=== PATIENT | male | born 1955 | race Caucasian/White ===

== ENCOUNTER 2020-07-08 16:28 | Inpatient (IN) ==
[2020-07-08] MEDS ORDERED: HYDROmorphone 1 MG/ML SYRINGE IM ONE (16:43)
[2020-07-08] MEDS ORDERED: ONDANSETRON 4 MG ODT TABLET SL ONE (16:44)
[2020-07-08] MEDS ORDERED: KETOROLAC 15 MG/ML VIAL IV ONE (17:30)
[2020-07-08] MEDS ORDERED: HYDROmorphone 0.5 MG/0.5 ML SYRINGE IV ONE (17:30)
--- NOTE | 2020-07-08 17:43 | Emergency Department Note ---
Lower Extremity Injury HPI General Chief Complaint: Extremity Injury, Lower Stated Complaint: left hip pain Time Seen by Provider: 07/08/20 16:30 Source: patient Mode of arrival: ambulatory History of Present Illness HPI Narrative: Narrative: 64-year-old male presents emergency department by private vehicle with complaints of left hip pain. He states that he was working in his shop when he tripped and fell directly on his lateral left hip. He had instant pain but would not allow his to call the paramedics and came by private vehicle instead. He denies previous injury to that hip although he does have chronic hip pain due to arthritis and they were waiting for their primary care provider to order plain x-rays. He has not eaten since 8:00 this morning and had some propels around 3:00. He denies hitting his head or losing consciousness. He is not on blood thinners. He denies chest pain or shortness of breath or abdominal pain calf pain. He has sensation intact distally in his lower extremities. Related Data Home Medications Medication Instructions Recorded Confirmed hydrochlorothiazide 12.5 mg tablet 12.5 mg PO QDAY 10/06/19 11/05/19 insulin lispro 100 unit/mL 1 sliding scale dose SUB-Q 10/06/19 11/05/19 subcutaneous cartridge USEASDIRECTD lisinopril 5 mg tablet 5 mg PO QDAY 10/06/19 11/05/19 etsqzixc-ekmmtcjh-htzrz acid 400 tab PO 10/06/19 11/05/19 mcg-vit K 20 mcg-lycop 300 mcg tablet pravastatin 20 mg tablet 20 mg PO QDAY 10/06/19 11/05/19 pregabalin 75 mg capsule 150 mg PO BID cap 10/06/19 11/05/19 tamsulosin 0.4 mg capsule 0.4 mg PO QDAY 10/06/19 11/05/19 lorazepam 1 mg PO QDAY PRN 07/08/20 07/08/20 Allergies Allergy/AdvReac Type Severity Reaction Status Date / Time Penicillins [PENICILLINS] Allergy Severe Unknown Verified 11/05/19 14:39 Review of Systems ROS ROS Narrative: Narrative: Musculoskeletal: Reports other (Left hip pain) PFSH Narrative Patient History Narrative: Narrative: Medical/Surgical/Family History All Active Problems (Updated 07/08/20 @ 20:04 by Alberto Vogt PA-C) Closed hip fracture (Acute) Sinusitis (Acute) Respiratory distress (Acute) Acute dyspnea (Acute) Sinusitis, acute (Acute) History of bradycardia (Acute) Peripheral neuropathy (Acute) Hyperlipidemia (Acute) Type 1 diabetes mellitus (Acute) Cough (Acute) Medical History Cough Respiratory distress Sinusitis Sinusitis, acute Type 1 diabetes mellitus Social History Smoking Status: Former smoker Exam Narrative Narrative: Narrative: Extremity: Left lower extremity is slightly shorter as well as externally rotated compared to contralateral. He is able to move his toes and has capillary refill less than 2 seconds and dorsalis pedis +2 bilaterally. There is no tenderness of his foot ankle or knee. There is tenderness with internal and external rotation of hip. Head Head: Present atraumatic and normocephalic Neck Neck: Present other (No cervical midline tenderness.) Cardiovascular Cardiovascular: Present regular rate and normal heart sounds Adbominal Abdominal: Present soft and other (Nontender) Neurological Neurological: Present alert and oriented X3 Psychiatric Psychiatric: Present anxious Skin Skin: Present warm (WNL) and cool Course Vital Signs Vital signs: Vital Signs Temperature 97.3 F 07/08/20 16:30 Pulse Rate 70 07/08/20 16:30 Respiratory Rate 18 07/08/20 16:30 Blood Pressure 112/68 07/08/20 16:30 Pulse Oximetry (%) 98 07/08/20 16:30 Temperature 97.3 F 07/08/20 16:30 Pulse Rate 68 07/08/20 19:46 Respiratory Rate 18 07/08/20 16:30 Blood Pressure 117/56 07/08/20 19:46 Pulse Oximetry (%) 97 07/08/20 19:46 MDM MDM Narrative Medical decision making narrative: Narrative: Patient was in extreme pain upon arrival. I am Dilaudid and oral Zofran given for pain and prophylactic nausea. Patient was still in quite a bit of pain and additional IV pain medication as well as methocarbamol and Toradol ordered. Left hip x-rays showed disruption of the cortex of the left proximal femoral neck. CT of the left hip:Comminuted, minimally displaced, angulated subcapital fracture of the left hip. Spoke with Dr. Pepe who had asked that we admit the patient to the hospital since he is a type I diabetic. He will did not do surgery tonight since he is over at [facility]. Dr Rodas agreed to admit the patient for further observation and treatment. Dr. Pepe will consult. ED POC Tests ED POC Tests: BILLY - SARS Antigen Negative EKG Data EKG #1: EKG results narrative: Sinus arrhythmia, first degree AV block. Narrow QRS normal QTC. There is no signs of Brugada, Lopressor weight or HOCM. No ST segment deviations or hyperacute T waves. My interpretation is sinus rhythm with first-degree AV block Discharge Plan Patient/Caregiver Discharge Instructions Pt seen by HEARING SCREENER/PA only: Yes Clinical Impression: Closed hip fracture Patient Disposition: Xfer As Inpt ([facility]) Follow up with: Rozina Watson MD [Primary Care Provider] - Prescriptions: No Action Humalog U-100 Insulin 100 unit/mL cartridge 1 sliding scale dose SUB-Q USEASDIRECTD RF: 0 lisinopril 5 mg tablet 5 mg PO QDAY RF: 0 pregabalin 75 mg capsule 150 mg PO BID RF: 0 tamsulosin 0.4 mg capsule 0.4 mg PO QDAY RF: 0 pravastatin 20 mg tablet 20 mg PO QDAY RF: 0 hydrochlorothiazide 12.5 mg tablet 12.5 mg PO QDAY RF: 0 One-A-Day Men's Multivitamin 400-20-300 mcg tablet 1 tab PO DAILY RF: 0 lorazepam 1 mg Tablet 1 mg PO QDAY PRN (Reason: Anxiety) RF: 0
[2020-07-08] MEDS ORDERED: METHOCARBAMOL 1,000 MG/10 ML VIAL IV ONE (17:44)
--- NOTE | 2020-07-08 18:35 | Cat Scan Report ---
CLINICAL INFORMATION: Trauma. Left hip pain COMPARISON: Plain films 07/08/2020. TECHNIQUE: 0.625mm helical slices were obtained from the mid L4 through the subtrochanteric regions. Following reconstruction, 2.5 mm sagittal, coronal and axial reformations were processed. The exam was reviewed in bone and soft tissue windows. The exam was performed using radiation dose optimization techniques including, but not limited to, automated exposure control, adjustment of mA and/or kV according to patient size and use of iterative reconstruction technique. FINDINGS: Acute oblique comminuted subcapital fracture of the left hip is appreciated. The neck fragment is displaced less than 5 mm anteriorly with respect to femoral head. Fracture apex is angulated approximately 20 degrees anteriorly. No other osseous abnormalities. The SI and hip joints are normal in width and alignment without arthritic change. At L3-4 moderate broad disc protrusion and facet arthropathy result in moderate central canal, bilateral lateral recess and IV foraminal narrowing. There is mild impingement of the descending L4 and exiting L3 nerve roots. At L4-5, moderate broad disc protrusion and facet arthropathy result in severe central canal, severe left lateral recess, moderate right lateral recess and mild bilateral IV foraminal narrowing. There is impingement of descending L5 nerve roots in the lateral recesses. At L5-S1 mild broad disc protrusion results in moderate left and mild right IV foraminal narrowing. There is impingement of the exiting left L5 nerve root. Soft tissues show normal prostate, seminal vesicles, urinary bladder and visualized small/ large bowel. There is no free air or free fluid. Muscle and fascial planes unremarkable. IMPRESSION: 1. Comminuted, minimally displaced, angulated subcapital fracture of the left hip. 2. Multilevel degeneration resulting in central canal, lateral recess and IV foraminal narrowing at L3-4 L4-5 and [id number] see above Interpreted and Authenticated by: Nathan Mancini 07/08/20
--- NOTE | 2020-07-08 18:36 | XRay Report ---
CLINICAL INFORMATION: left hip pain following trauma COMPARISON: None. FINDINGS: The ability displaced slightly angulated subcapital fracture of the left hip appreciated. No other osseous abnormalities. Both SI and hip joints are normal in width and alignment arthritic change. Soft tissues normal. IMPRESSION: Minimally displaced acute subcapital fracture-left hip Interpreted and Authenticated by: Nathan Mancini 07/08/20
--- NOTE | 2020-07-08 18:40 | XRay Report ---
CLINICAL INFORMATION: Preop COMPARISON: 10/22/2019 FINDINGS: Cardiomediastinal silhouette and pulmonary vessels are normal for technique. Lungs are clear. No effusions or evidence of pneumothorax. Malunified old fracture distal left clavicle seen-as before IMPRESSION: No acute cardiopulmonary disease. Interpreted and Authenticated by: Nathan Mancini 07/08/20
--- NOTE | 2020-07-08 20:08 | Internal Med History&Physical ---
HPI History of Present Illness Patient information: Note initiated : 07/08/20 at 7:50 pm Service Date, if different from initiated Date: [] Patient: Robert Reynolds 64 y/o M admitted on for Left Hip Pain. Chief Complaint: [] History of present illness: Mr. Reynolds is a 64 year old male with a history of diabetes mellitus type I complicated by peripheral neuropathy, hyperlipidemia, bradycardia, osteoporosis who fell in his shop and fractured his left hip. Workup in the ED included left hip xrays showing left proximal femoral fracture and CT of the hip showing a comminuted, minimally displaced, angulated subcapital fracture of the left hip. [facility] medicine was asked to admit the patient with orthopedic surgery consulting. The patient denies a history of myocardia infarction or stroke. He is normally fairly active but not athletic. He had a cardiac stress test recently that he says was interpreted as normal. He has had bradycardia for a long time and says he has seen cardiology for that. He manages his diabetes mellitus with an insulin pump and also has a connected sensor. He typically requires about 24 units of insulin per day and hemoglobin A1C have been well controlled since he started using the pump. Prior to that his glucose was difficult to control, at one point hemoglobin A1C was over 12. Other than the hip fracture he is also concerned about left knee pain and swelling. He otherwise has no complaints. Review of systems Constitutional: no fever, fatigue, or weight loss Eyes: no vision changes or pain Cardiovascular: slow heart rate, no chest pain, no palpitations Respiratory: no cough or dyspnea Gastrointestinal: no abdominal pain, no nausea, vomiting, or diarrhea Genitourinary: no dysuria or difficulty voiding Musculoskeletal: left hip and knee pain Integumentary: no skin lesion or wound Neurological: no focal weakness or numbness Psychiatric: no anxiety or depression Head: Atraumatic, normal inspection. Eyes: normal appearance, no scleral icterus. Neck: full ROM Respiratory: no respiratory distress. Cardiovascular: regular bradycardia, S1, S2. GI/Abdominal: soft, nontender, no guarding. Extremities: left leg externally rotated, left knee swelling but no signs of external trauma Neurological: CN II-XII intact, intact motor, intact sensation. Psychiatric: normal mood. Skin: warm, normal color PFSH PFSH All Active Problems (Updated 07/08/20 @ 20:04 by Alberto Vogt PA-C) Closed hip fracture (Acute) Sinusitis (Acute) Respiratory distress (Acute) Acute dyspnea (Acute) Sinusitis, acute (Acute) History of bradycardia (Acute) Peripheral neuropathy (Acute) Hyperlipidemia (Acute) Type 1 diabetes mellitus (Acute) Cough (Acute) Medical History Cough Respiratory distress Sinusitis Sinusitis, acute Type 1 diabetes mellitus MEDS/ALLERGIES Home Medications and Allergies Home Medications Medication Instructions Recorded Confirmed Type hydrochlorothiazide 12.5 mg tablet 12.5 mg PO QDAY 10/06/19 11/05/19 History insulin lispro 100 unit/mL 1 sliding scale dose SUB-Q 10/06/19 11/05/19 History subcutaneous cartridge USEASDIRECTD lisinopril 5 mg tablet 5 mg PO QDAY 10/06/19 11/05/19 History txtvyuzn-kncukyyk-kdzim acid 400 tab PO 10/06/19 11/05/19 History mcg-vit K 20 mcg-lycop 300 mcg tablet pravastatin 20 mg tablet 20 mg PO QDAY 10/06/19 11/05/19 History pregabalin 75 mg capsule 150 mg PO BID cap 10/06/19 11/05/19 History tamsulosin 0.4 mg capsule 0.4 mg PO QDAY 10/06/19 11/05/19 History lorazepam 1 mg PO QDAY PRN 07/08/20 07/08/20 History Allergies Allergy/AdvReac Type Severity Reaction Status Date / Time Penicillins [PENICILLINS] Allergy Severe Unknown Verified 11/05/19 14:39 EXAM Constitutional Vitals: Temp Pulse Resp BP Pulse Ox 97.3 F 68 18 117/56 97 07/08/20 16:30 07/08/20 19:46 07/08/20 16:30 07/08/20 19:46 07/08/20 19:46 A/P Narrative A/P Narrative: Assessment: 64 year old male with a history of diabetes mellitus type I complicated by peripheral neuropathy, hypertension, hyperlipidemia, osteoporosis, bradycardia who fell in his shop and fractured his left hip. The patient's glucose has been well controlled with an insulin pump and sensor. He usually feels low glucose less than 40 but that has been rare with the insulin pump. He does not remember ever having diabetic ketoacidosis. He is active and can tolerate 4 METS. He denies a history of coronary artery disease, no prior stroke or known kidney disease. He says he has a cardiac stress test recently that was reported as normal. He does have a history bradycardia, likely sinus bradycardia. He was recently told he has osteoporosis. #Left hip fracture d/t mechanical fall #Diabetes mellitus type I-on insulin pump #Bradycardia #Hypertension #Osteoporosis-currently not treated Plan -Admission CBC/CMP/type and screen. -EKG for baseline, no other preoperative workup for surgery. -Hold home HCTZ and lisinopril until after surgery as blood pressure is low normal in ED. -Continue insulin pump w/ sensor while on med/surg floor. -POCT glucose to verify sensor accuracy. -Analgesics/bowel regimen. -NPO at midnight. -DVT ppx: SCD for now then pharmacologic when ok with surgery to start. -Code status: Full -Disposition: probably home Time Spent With Patient Time: Total time spent is greater than 50% in coordination of care (as documented) at patient's floor/unit and/or counseling patient: 75 minutes
[2020-07-08] MEDS ORDERED: HYDROmorphone 1 MG/ML SYRINGE IV ONE (21:35)
--- NOTE | 2020-07-08 21:38 | Consultation ---
DATE OF CONSULTATION: 07/08/2020 IDENTIFICATION: This is a 64-year-old male. CHIEF COMPLAINT: Left hip fracture. HISTORY OF PRESENT ILLNESS: Mr. Reynolds sustained ground-level fall at a shop today, had immediate pain, presented to the emergency room at [facility] further evaluation and management. His radiographs have demonstrated a left femoral neck fracture which is displaced. I have been called for further evaluation. PAST MEDICAL HISTORY: Significant for type 1 diabetes, manages this with an insulin pump. His A1c's have been well controlled. Bradycardia, hyperlipidemia, and osteoporosis. PAST SURGICAL HISTORY: Noncontributory. MEDICATIONS: Include, 1. Pravastatin. 2. Gabapentin. 3. ____ Flomax. 4. Lorazepam. 5. Hydrochlorothiazide. 6. Insulin. 7. Lisinopril. ALLERGIES: HIS ALLERGIES ARE TO PENICILLIN. REVIEW OF SYSTEMS: He has been healthy recently with no acute changes in past medical or 10-point review of system. PHYSICAL EXAMINATION: GENERAL: He is awake and alert. He is resting comfortably. HEAD: Normocephalic, atraumatic. EYES: PERRLA. Conjunctivae clear. ENT: Within normal limits. NECK: Supple without pain on range of motion. HEART: Regular. LUNGS: Clear. ABDOMEN: Benign. MUSCULOSKELETAL: His left hip is very carefully positioned. Any movement in and about the hip causes spasming pain. His leg is shortened and now rotated. He is without focal neurovascular deficit. RADIOGRAPHS: Demonstrate a femoral neck fracture which is significantly angulated and displaced. IMPRESSION: Femoral neck fracture. We have reviewed treatment options and I would like to proceed with a total hip arthroplasty. Surgical risks, complications, and limitations have been discussed. Patient understands these well and wishes to proceed. GDD:elbert Job ID: [id number] Doc ID: [id number] Shamar Pepe MD
[2020-07-08] MEDS ORDERED: DEXTROSE 50% 50 ML VIAL IV PRN (22:41)
[2020-07-08] MEDS ORDERED: DEXTROSE 31 GM ORAL.SUSP PO PRN (22:41)
[2020-07-08] MEDS ORDERED: ONDANSETRON 4 MG/2 ML VIAL IV PRN (22:41)
[2020-07-08] MEDS ORDERED: POLYETHYLENE GLYCOL 3350 17 GM PACKET PO PRN (22:41)
[2020-07-08] MEDS ORDERED: 0.9 % SODIUM CHLORIDE 250 ML IV SCH (22:41)
[2020-07-08] MEDS ORDERED: ACETAMINOPHEN 325 MG TABLET PO PRN (22:41)
[2020-07-08] MEDS ORDERED: SENNOSIDES 1 TABLET PO SCH (22:41)
[2020-07-08] MEDS ORDERED: HYDROcodone/APAP 5/325MG TABLET PO PRN (22:41)
[2020-07-08] MEDS ORDERED: ONDANSETRON 4 MG/2 ML VIAL ONE (22:52)
[2020-07-08] MEDS ORDERED: HYDROmorphone 0.5 MG/0.5 ML SYRINGE ONE (22:52)
[2020-07-08] MEDS: 0.9 % SODIUM CHLORIDE 10 ML SYRINGE IV SCH (23:49)
[2020-07-09 00:48] LABS: Hematocrit 40.7 % (41.0-55.0); Hemoglobin 14.1 g/dL (13.5-16.5); Mean Cell Volume 90.4 fL (80.0-100.0); Mean Corpuscular HGB Conc 34.6 g/dL (31.0-36.0); Platelet Count 264 K/mcL (140-440); Red Cell Distribution Width 12.4 % (11.5-14.5); WBC 12.6 K/mcL (4.5-11.0)
[2020-07-09 01:11] LABS: ALT/SGPT 20 U/L (<40); AST/SGOT 21 U/L (<40); Albumin 3.8 gm/dL (3.2-5.2); Albumin/Globulin Ratio 1.5 (1.0-2.3); Alkaline Phosphatase 60 U/L (39-117); Bilirubin,Total 0.8 mg/dL (0.1-1.0); Blood Urea Nitrogen 24 mg/dL (8-23); Calcium 8.9 mg/dL (8.6-10.4); Carbon Dioxide 23 mmol/L (22-30); Chloride 101 mmol/L (96-108); Globulin 2.5 gm/dL (2.2-3.7); Glomerular Filtration Rate 90; Glucose 218 mg/dL (70-105)
[2020-07-09 01:34] LABS: Band Neutrophils % 3 % (0-10); Eosinophils % (Manual) 4 % (0-7); Lymphocytes % 32 % (15-49); Monocytes % (Manual) 11 % (1-12); Platelet Estimate NORMAL (Normal); RBC Morphology NORMAL (Normal); Reactive Lymphocytes 4 % (0-2); Segmented Neutrophils % 46 % (38-78)
[2020-07-09] MEDS ORDERED: HYDROmorphone 0.5 MG/0.5 ML SYRINGE ONE ×2 (02:30→05:55)
[2020-07-09] MEDS: 0.9 % SODIUM CHLORIDE 10 ML SYRINGE IV SCH ×5 (04:53→21:08)
--- NOTE | 2020-07-09 05:38 | XRay Report ---
CLINICAL INFORMATION: knee pain after fall COMPARISON: 06/26/2005 FINDINGS: Absent patella again noted. Minimal calcification seen in the patellar tendon region and edema. No fracture appreciated within the femur, tibia or fibula. Moderate medial tibiofemoral and mild lateral tibiofemoral degeneration has progressed from 2005. Chondrocalcinosis in the medial meniscus is new. Mild diffuse soft tissue swelling noted IMPRESSION: 1. No fracture. 2. Moderate medial and mild lateral tibiofemoral degeneration. Chondrocalcinosis in the medial meniscus. Findings have progressed from 2005. 3. Absent patella. Mild edema in the patellar tendon Interpreted and Authenticated by: Nathan Mancini 07/09/20
[2020-07-09] MEDS ORDERED: HYDROcodone/APAP 5/325MG TABLET PO ONE (06:26)
[2020-07-09] MEDS ORDERED: HYDROmorphone 1 MG/ML SYRINGE IV ONE (07:06)
[2020-07-09] MEDS ORDERED: HYDROmorphone 1 MG/ML SYRINGE ONE (07:19)
[2020-07-09 07:43] LABS: Appearance,Urine HAZY (Clear); Bilirubin,Urine Negative (Negative); Color,Urine YELLOW; Culture Indicated,Urine No; Glucose,Urine (UA) 50 mg/dL (Negative); Ketones,Urine 5 mg/dL (Negative); Leukocyte Esterase,Urine Negative /ug (Negative); Nitrate,Urine Negative (Negative); Protein,Urine Negative (Negative); Specific Gravity,Urine 1.027 (1.000-1.035); Urine Blood Negative (Negative); Urobilinogen,Urine Negative
[2020-07-09] MEDS ORDERED: ceFAZolin 2 GM in DEXTROSE 5% IN WATER 50 ML IV SCH (07:45)
[2020-07-09] MEDS ORDERED: SCOPOLAMINE 1 PATCH PATCH TOPICAL PRN (08:00)
[2020-07-09] MEDS ORDERED: IPRATROPIUM/ALBUTEROL 3 ML AMPUL.NEB NEB PRN ×2 (08:00→09:46)
[2020-07-09] MEDS ORDERED: MAGNESIUM SULFATE 2 GM/50 ML BAG IV ONE (08:01)
[2020-07-09] MEDS ORDERED: TRANEXAMIC ACID 1,000 MG/10 ML VIAL IV ONE ×2 (08:01→09:57)
[2020-07-09] MEDS ORDERED: GLYCOPYRROLATE 0.2 MG/ML VIAL IV ONE (08:01)
[2020-07-09] MEDS ORDERED: MIDAZOLAM 2 MG/2 ML VIAL ONE (08:01)
[2020-07-09] MEDS ORDERED: ROPIVACAINE HCL/PF 30 ML VIAL IJ ONE (08:01)
[2020-07-09] MEDS ORDERED: PHENYLEPHRINE 10 MG/ML VIAL ONE (08:01)
[2020-07-09] MEDS ORDERED: ONDANSETRON 4 MG/2 ML VIAL ONE (08:01)
[2020-07-09] MEDS ORDERED: KETAMINE 50 MG/ML ML ONE (08:01)
[2020-07-09] MEDS ORDERED: DEXAMETHASONE 10 MG/ML VIAL ONE (08:01)
[2020-07-09] MEDS ORDERED: LIDOCAINE HCL/PF 100 MG/5 ML SYRINGE IV ONE (08:01)
[2020-07-09] MEDS ORDERED: PROPOFOL 200 MG/20 ML VIAL IV ONE (08:01)
[2020-07-09] MEDS ORDERED: GENTAMICIN SULFATE 800 MG/20 ML VIAL IR ONE (08:41)
[2020-07-09] MEDS ORDERED: ONDANSETRON 4 MG/2 ML VIAL IV PRN ×2 (09:46→09:57)
[2020-07-09] MEDS ORDERED: METHOCARBAMOL 1,000 MG/10 ML VIAL IV PRN (09:46)
[2020-07-09] MEDS ORDERED: ACETAMINOPHEN 1,000 MG/100 ML BAG IV ONE (09:46)
[2020-07-09] MEDS ORDERED: fentaNYL 100 MCG/2 ML VIAL IV PRN (09:46)
[2020-07-09] MEDS ORDERED: BENZOCAINE/MENTHOL 1 LOZENGE PO PRN ×2 (09:46→09:57)
[2020-07-09] MEDS ORDERED: MAGNESIUM HYDROXIDE 30 ML ORAL.SUSP PO PRN (09:57)
[2020-07-09] MEDS ORDERED: POLYETHYLENE GLYCOL 3350 17 GM PACKET PO PRN (09:57)
[2020-07-09] MEDS ORDERED: FLEETS ADULT ENEMA PR PRN (09:57)
[2020-07-09] MEDS ORDERED: BISACODYL 10 MG SUPP.RECT PR PRN (09:57)
[2020-07-09] MEDS ORDERED: ONDANSETRON 4 MG ODT TABLET SL PRN (09:57)
--- NOTE | 2020-07-09 09:57 | Brief Operative Note ---
Brief Operative Note Date of procedure: 07/09/20 Pre-op diagnosis: left hip fracture Post-op diagnosis: same Procedure: Left total hip arthroplasty Grafts/Implants: Yes Anesthesia: GETA Complications: none Surgeon: Shamar Pepe Prism Measurer: Tanna Tripp Estimated blood loss (cc): 250 Specimens Removed/Pathology: none sent Condition: stable Disposition: PACU
[2020-07-09] MEDS ORDERED: LACTATED RINGERS 1,000 ML IV SCH (10:00)
[2020-07-09] MEDS: MEPERIDINE 25 MG/ML VIAL IV PRN ×2 (10:35→10:50)
[2020-07-09] MEDS: 0.9 % SODIUM CHLORIDE 1,000 ML IV SCH ×2 (11:48→21:29)
--- NOTE | 2020-07-09 14:45 | XRay Report ---
CLINICAL INFORMATION: post op. Subcapital fracture left hip COMPARISON: Preoperative CT FINDINGS: Left total hip prostheses is anatomically aligned. Right hip and both SI joints are unremarkable. No osseous normality. Soft issue swelling over the left hip-as expected IMPRESSION: Left total hip prostheses in anatomic alignment. Interpreted and Authenticated by: Nathan Mancini 07/09/20
--- NOTE | 2020-07-09 15:12 | XRay Report ---
CLINICAL INFORMATION: left hip arthroplasty COMPARISON: None. FINDINGS: Digital images from the OR show subcapital fracture of the left hip which is minimally displaced. Total fluoroscopy time 0.5 minutes IMPRESSION: Minimally displaced left subcapital fracture. Total fluoroscopy time 0.5 minutes Interpreted and Authenticated by: Nathan Mancini 07/09/20
[2020-07-09] MEDS: ceFAZolin 1 GM VIAL IV SCH (15:47)
[2020-07-09] MEDS: HYDROmorphone 0.5 MG/0.5 ML SYRINGE IV PRN ×2 (16:55→22:05)
[2020-07-09] MEDS: METHOCARBAMOL 750 MG TABLET PO PRN (16:55)
--- NOTE | 2020-07-09 17:36 | Internal Med Progress Note ---
SUBJECTIVE Subjective Patient information: Note initiated : 07/09/20 at 5:34 pm Service Date, if different from initiated Date: [] Patient: Robert Reynolds 64 y/o M admitted on 07/08/20 for Left Hip Pain. Chief Complaint: [] Interval history: Mr. Reynolds is a 64 year old male with a history of diabetes mellitus type I complicated by peripheral neuropathy, hyperlipidemia, bradycardia, osteoporosis who fell in his shop and fractured his left hip. Wo rkup in the ED included left hip xrays showing left proximal femoral fracture and CT of the hip showing a comminuted, minimally displaced, angulated subcapital fracture of the left hip. Hospital medicine was asked to admit the patient with orthopedic surgery consulting. The patient denies a history of myocardia infarction or stroke. He is normally fairly active but not athletic. He had a cardiac stress test recently that he says was interpreted as normal. He has had bradycardia for a long time and says he has seen cardiology for that. He manages his diabetes mellitus with an insulin pump and also has a connected sensor. He typically requires about 24 units of insulin per day and hemoglobin A 1C have been well controlled since he started using the pump. Prior to that his glucose was difficult to control, at one point hemoglobin A1C was over 12. Other than the hip fracture he is also concerned about left knee pain and swelling. He otherwise has no complaints. 07/09-surgery went well, resuming insulin pump and starting diet, PT/OT, no fractures of left knee on xray, chondrocalcinosis of medial meniscus present, abscent patella wtih mild edema in the patellar tendon Head: Atraumatic, normal inspection. Eyes: normal appearance, no scleral icterus. Neck: full ROM Respiratory: no respiratory distress. Cardiovascular: regular bradycardia, S1, S2. GI/Abdominal: soft, nontender, no guarding. Extremities: left hip incision, left knee swelling but no signs of external trauma Neurological: CN II-XII intact, intact motor, intact sensation. Psychiatric: normal mood. Skin: warm, normal color Constitutional Vitals: Vital Signs Temp Pulse Resp BP Pulse Ox 98.4 F 51 L 16 92/52 94 07/09/20 16:00 07/09/20 16:00 07/09/20 16:00 07/09/20 16:00 07/09/20 16:00 Period Temp Pulse Resp BP Sys/Jackson Pulse Ox Last 24 Hr 97.2 F-98.8 F 44-86 11-22 92-166/35-123 89-99 Intake and Output 07/09/20 07/09/20 07/09/20 05:59 13:59 21:59 Intake Total 2049 250 Output Total 450 325 Balance -450 1725 250 Weight 92.986 kg Intake & Output: Intake & Output 07/09/20 07/09/20 07/09/20 05:59 13:59 21:59 Intake Total 2049 250 Output Total 450 325 Balance -450 1725 250 Weight 92.986 kg Intake: IV 150 250 Sodium Chloride 0.9% 250 ml @ 250 20 mls/hr IV .[id number] [facility] Rx#: [id number] Ancef 2 gm In Dextrose 5% in 50 Water 50 ml @ 100 mls/hr IV PREOP [facility] Rx#:[id number] IV - Manual Only 1900 Output: Void Amount 450 150 Estimated Blood Loss 175 Other: Meal Lunch Percent of Meal Consumed 50% Feeding Ability Independent Urine Appearance Cloudy Clear Urine Color Dark Yellow Bright Yellow Urine Odor Normal OBJ DATA Labs CBC & Chem 7: 07/08/20 23:11 07/08/20 23:11 Labs: Abnormal Lab Results 07/09/20 07/08/20 07/08/20 05:58 23:11 23:11 WBC 12.6 H Hct 40.7 L Reactive Lymphocytes 4 H BUN 24 H Glucose 218 H Urine Appearance Hazy A Urine Glucose (UA) 50 A Urine Ketones 5 A Meds: Medications Acetaminophen (Acetaminophen 325 Mg Tablet) 650 mg PO Q6HP PRN; Protocol PRN Reason: Per Pain Protocol/Fever > 101 Hydrocodone Bitart/Acetaminophen (Hydrocodone/Apap 7.5/325mg Tablet) 1 - 2 tab PO Q4HP PRN; Protocol PRN Reason: Per Pain Protocol Bisacodyl (Bisacodyl 10 Mg Supp.Rect) 10 mg MN Q2-3DAYS PRN PRN Reason: Constipation Cefazolin Sodium (Cefazolin 1 Gm Vial) 2 gm IV Q8H [facility] Stop: 07/10/20 00:01 Last Admin: 07/09/20 15:47 Dose: 2 gm Documented by: Dextrose (Dextrose 50% 50 Ml Vial) 50 ml IV UD PRN PRN Reason: Hypoglycemia Diagnostic Test (Pha) (Accu-Chek 1 Each Strip) 1 each FS ACHS [facility] Last Admin: 07/09/20 15:56 Dose: 1 each Documented by: Docusate Sodium (Docusate Sodium 100 Mg Capsule) 100 mg PO BID [facility] Glucose (Dextrose 31 Gm Oral.Susp) 15 gm PO Q15M PRN PRN Reason: hypoglycemia Hydromorphone HCl (Hydromorphone 0.5 Mg/0.5 Ml Syringe) 0.5 mg IV Q2HP PRN; Protocol PRN Reason: Per Pain Protocol Last Admin: 07/09/20 16:55 Dose: 0.5 mg Documented by: Sodium Chloride (Sodium Chloride 0.9%) 1,000 mls @ 100 mls/hr IV .Q10H [facility] Last Admin: 07/09/20 11:48 Dose: 100 mls/hr Documented by: Magnesium Hydroxide (Magnesium Hydroxide 30 Ml Oral.Susp) 30 ml PO BIDP PRN PRN Reason: Constipation Methocarbamol (Methocarbamol 750 Mg Tablet) 750 mg PO Q6HP PRN PRN Reason: Muscle Spasm Last Admin: 07/09/20 16:55 Dose: 750 mg Documented by: Ondansetron HCl (Ondansetron 4 Mg/2 Ml Vial) 4 mg IV Q4HP PRN; Protocol PRN Reason: Nausea And Vomiting Ondansetron HCl (Ondansetron 4 Mg Odt Tablet) 4 mg SL Q4HP PRN; Protocol PRN Reason: Nausea And Vomiting Polyethylene Glycol (Polyethylene Glycol 3350 17 Gm Packet) 17 gm PO DAILYP PRN PRN Reason: Constipation Pravastatin Sodium (Pravastatin 20 Mg Tablet) 20 mg PO QDAY [facility] Senna (Sennosides 1 Tablet) 2 tab PO [facility] Sodium Biphosphate/Sodium Phosphate (Fleets Adult Enema) 1 dose MN Q3-4DAYS PRN PRN Reason: Constipation Sodium Chloride (0.9 % Sodium Chloride 10 Ml Syringe) 10 ml IV Q8 [facility] Last Admin: 07/09/20 12:04 Dose: Not Given Documented by: Sodium Chloride (0.9 % Sodium Chloride 10 Ml Syringe) 10 ml IV Q8 [facility] Last Admin: 07/09/20 12:04 Dose: Not Given Documented by: Tamsulosin HCl (Tamsulosin 0.4 Mg Capsule) 0.4 mg PO QDAY [facility] Throat Lozenges (Benzocaine/Menthol 1 Lozenge) 1 lozenge PO PRN PRN PRN Reason: Sore Throat A/P Narrative A/P Narrative: Assessment: 64 year old male with a history of diabetes mellitus type I complicated by peripheral neuropathy, hypertension, hyperlipidemia, osteoporosis, bradycardia who fell in his shop and fractured his left hip. The patient's glucose has been well controlled with an insulin pump and sensor. He usually feels low glucose less than 40 but that has been rare with the insulin pump. He does not remember ever having diabetic ketoacidosis. He is active and can tolerate 4 METS. He denies a history of coronary artery disease, no prior stroke or known kidney disease. He says he has a cardiac stress test recently that was reported as normal. He does have a history bradycardia, likely sinus bradycardia. He was recently told he has osteoporosis. #Left hip fracture d/t mechanical fall s/p lt [facility] 07/09 #Diabetes mellitus type I-on insulin pump #Sinus bradycardia -prolonged MN interval #Essential hypertension-stable #Osteoporosis-currently not treated Plan -Hold home HCTZ and lisinopril for now. -Continue insulin pump w/ sensor per protocol while on med/surg floor. -Analgesics/bowel regimen. -Advance diet. -PT/OT -DVT ppx: per surgery -Code status: Full -Disposition: probably home Time Spent With Patient Time: Total time spent is greater than 50% in coordination of care (as documented) at patient's floor/unit and/or counseling patient: QUALITY VTE Deep Vein Thrombosis/Pulmonary Embolism Present on Admission: No
[2020-07-09] MEDS: HYDROCODONE/APAP 7.5/325MG TABLET PO PRN (17:42)
[2020-07-09] MEDS ORDERED: SENNOSIDES 1 TABLET PO SCH (21:00)
[2020-07-09] MEDS ORDERED: SIMVASTATIN 10 MG TABLET PO SCH (21:00)
[2020-07-09] MEDS: DOCUSATE SODIUM 100 MG CAPSULE PO SCH (21:03)
[2020-07-09] MEDS: TAMSULOSIN 0.4 MG CAPSULE PO SCH (21:03)
[2020-07-10] MEDS: ceFAZolin 1 GM VIAL IV SCH (00:19)
[2020-07-10] MEDS: METHOCARBAMOL 750 MG TABLET PO PRN ×2 (00:28→06:24)
[2020-07-10] MEDS: HYDROCODONE/APAP 7.5/325MG TABLET PO PRN ×4 (00:28→15:38)
[2020-07-10] MEDS: 0.9 % SODIUM CHLORIDE 10 ML SYRINGE IV SCH ×4 (04:04→15:05)
--- NOTE | 2020-07-10 06:41 | Orthopedic Progress Note ---
SUBJECTIVE Subjective Patient information: Note initiated : 07/10/20 at 6:40 am Service Date, if different from initiated Date: [] Patient: Robert Reynolds 64 y/o M admitted on 07/08/20 for Left Hip Pain. Chief Complaint: [] Principal diagnosis: pain controll marginal Constitutional Vitals: Vital Signs Temp Pulse Resp BP Pulse Ox 98.0 F 60 16 109/56 95 07/10/20 04:00 07/10/20 04:00 07/10/20 04:00 07/10/20 04:00 07/10/20 04:00 Period Temp Pulse Resp BP Sys/Jackson Pulse Ox Last 24 Hr 97.0 F-98.7 F 46-86 11-18 92-137/35-73 89-98 Intake and Output 07/09/20 07/10/20 07/10/20 21:59 05:59 13:59 Intake Total 1900 200 Output Total 700 400 Balance 1200 -200 Weight 204 lb 4.8 oz Intake & Output: Intake & Output 07/09/20 07/10/20 07/10/20 21:59 05:59 13:59 Intake Total 1900 200 Output Total 700 400 Balance 1200 -200 Weight 204 lb 4.8 oz Intake: IV 1250 Sodium Chloride 0.9% 1,000 ml @ 1000 100 mls/hr IV .Q10H [facility] Rx#: [id number] Sodium Chloride 0.9% 250 ml @ 250 20 mls/hr IV .[id number] [facility] Rx#: [id number] Oral 650 200 Output: Urine Catheter Amount 200 Void Amount 500 400 Other: Meal Dinner Percent of Meal Consumed 50% Feeding Ability Independent Urine Appearance Clear Clear Urine Color Bright Yellow Dark Yellow Urine Odor Normal Normal OBJ DATA Labs CBC & Chem 7: 07/08/20 23:11 07/08/20 23:11 Labs: Abnormal Lab Results 07/09/20 07/08/20 07/08/20 05:58 23:11 23:11 WBC 12.6 H Hct 40.7 L Reactive Lymphocytes 4 H BUN 24 H Glucose 218 H Urine Appearance Hazy A Urine Glucose (UA) 50 A Urine Ketones 5 A Meds: Medications Acetaminophen (Acetaminophen 325 Mg Tablet) 650 mg PO Q6HP PRN; Protocol PRN Reason: Per Pain Protocol/Fever > 101 Hydrocodone Bitart/Acetaminophen (Hydrocodone/Apap 7.5/325mg Tablet) 1 - 2 tab PO Q4HP PRN; Protocol PRN Reason: Per Pain Protocol Last Admin: 07/10/20 06:23 Dose: 2 tab Documented by: Bisacodyl (Bisacodyl 10 Mg Supp.Rect) 10 mg CA Q2-3DAYS PRN PRN Reason: Constipation Dextrose (Dextrose 50% 50 Ml Vial) 50 ml IV UD PRN PRN Reason: Hypoglycemia Diagnostic Test (Pha) (Accu-Chek 1 Each Strip) 1 each FS ACHS [facility] Last Admin: 07/09/20 21:04 Dose: 1 each Documented by: Docusate Sodium (Docusate Sodium 100 Mg Capsule) 100 mg PO BID [facility] Last Admin: 07/09/20 21:03 Dose: 100 mg Documented by: Glucose (Dextrose 31 Gm Oral.Susp) 15 gm PO Q15M PRN PRN Reason: hypoglycemia Hydromorphone HCl (Hydromorphone 0.5 Mg/0.5 Ml Syringe) 0.5 mg IV Q2HP PRN; Protocol PRN Reason: Per Pain Protocol Last Admin: 07/09/20 22:05 Dose: 0.5 mg Documented by: Magnesium Hydroxide (Magnesium Hydroxide 30 Ml Oral.Susp) 30 ml PO BIDP PRN PRN Reason: Constipation Methocarbamol (Methocarbamol 750 Mg Tablet) 750 mg PO Q6HP PRN PRN Reason: Muscle Spasm Last Admin: 07/10/20 06:24 Dose: 750 mg Documented by: Ondansetron HCl (Ondansetron 4 Mg/2 Ml Vial) 4 mg IV Q4HP PRN; Protocol PRN Reason: Nausea And Vomiting Ondansetron HCl (Ondansetron 4 Mg Odt Tablet) 4 mg SL Q4HP PRN; Protocol PRN Reason: Nausea And Vomiting Polyethylene Glycol (Polyethylene Glycol 3350 17 Gm Packet) 17 gm PO DAILYP PRN PRN Reason: Constipation Senna (Sennosides 1 Tablet) 2 tab PO HS [facility] Last Admin: 07/09/20 21:03 Dose: 2 tab Documented by: Simvastatin (Simvastatin 10 Mg Tablet) 10 mg PO [facility] Last Admin: 07/09/20 21:03 Dose: 10 mg Documented by: Sodium Biphosphate/Sodium Phosphate (Fleets Adult Enema) 1 dose CA Q3-4DAYS PRN PRN Reason: Constipation Sodium Chloride (0.9 % Sodium Chloride 10 Ml Syringe) 10 ml IV Q8 [facility] Last Admin: 07/10/20 04:04 Dose: 10 ml Documented by: Sodium Chloride (0.9 % Sodium Chloride 10 Ml Syringe) 10 ml IV Q8 [facility] Last Admin: 07/10/20 04:05 Dose: 10 ml Documented by: Tamsulosin HCl (Tamsulosin 0.4 Mg Capsule) 0.4 mg PO QDAY [facility] Last Admin: 07/09/20 21:03 Dose: Not Given Documented by: Throat Lozenges (Benzocaine/Menthol 1 Lozenge) 1 lozenge PO PRN PRN PRN Reason: Sore Throat A/P Narrative A/P Narrative: mobilize with pt Time Spent With Patient Time: Total time spent is greater than 50% in coordination of care (as documented) at patient's floor/unit and/or counseling patient:
[2020-07-10] MEDS ORDERED: LORazepam 1 MG TABLET PO PRN (07:07)
[2020-07-10 07:46] LABS: Hematocrit 37.4 % (41.0-55.0); Hemoglobin 12.7 g/dL (13.5-16.5)
[2020-07-10 08:19] LABS: INR 1.1 (0.9-1.1); Prothrombin Time 14.9 sec (11.9-14.5)
--- NOTE | 2020-07-10 08:29 | Operative Note ---
DATE OF OPERATION: 07/09/2020 PREOPERATIVE DIAGNOSIS: Left hip fracture, which is displaced and angulated. POSTOPERATIVE DIAGNOSIS: Subcapital femoral neck fracture. POSTOPERATIVE DIAGNOSIS: Left hip fracture, which is displaced and angulated. OPERATION PROPOSED: Left total hip arthroplasty for the fracture. PROCEDURE PERFORMED: Left total hip arthroplasty for fracture. OPERATION PERFORMED: Same. SURGEON: Shamar Pepe M.D. INDICATIONS: This is a 64-year-old gentleman who has a displaced femoral neck fracture. Because of his age, and as well as, some reported preexisting hip pain, it is felt that a total hip arthroplasty is better management than a hemiarthroplasty. DESCRIPTION OF PROCEDURE: After informed consent was obtained, the patient was taken to the operating room where he was provided appropriate anesthetic and prophylactic antibiotics. He was carefully positioned. A standard anterior approach to the hip was performed. I suture ligated several traversing vessels. The hip capsule was exposed. I cut and T'd the hip capsule. Femoral head was removed and a femoral neck cut was performed. I then sequentially reamed the acetabulum. I impacted the size 56 [place] cup from [employer]. This was prepared with a neutral liner. I then sequentially broached and impacted a size 8 ACTIS stem, also from [employer]. I trialed several different head and neck components and reduced a size 36 head ball with a 1.5 neck. The wounds were irrigated thoroughly. Hip capsule was closed. I repaired the fascia of the tensor muscular, 2-0 inverted deep dermal and soto in the skin. The procedure was tolerated well with no complications. ESTIMATED BLOOD LOSS: 200 mL. GDD:jen Job ID: [id number] Doc ID: [id number] Shamar Pepe MD
[2020-07-10 08:53] LABS: Albumin 3.3 gm/dL (3.2-5.2); Calcium 8.4 mg/dL (8.6-10.4)
[2020-07-10] MEDS ORDERED: ASPIRIN 81 MG TAB.CHEW CHEWED SCH (09:00)
[2020-07-10] MEDS: TAMSULOSIN 0.4 MG CAPSULE PO SCH (09:04)
[2020-07-10] MEDS: DOCUSATE SODIUM 100 MG CAPSULE PO SCH (09:04)
--- NOTE | 2020-07-10 11:50 | Discharge Summary ---
Discharge Provider Provider Patient information: Note initiated : 07/10/20 at 11:48 am Service Date, if different from initiated Date: [] Patient: Robert Reynolds 64 y/o M admitted on 07/08/20 for Left Hip Pain. Chief Complaint: [] Date of admission: 07/08/20 22:12 Discharge date: 07/10/20 Primary care physician: Rozina Watson MD Consults: 07/08/20 Consult to Physician [CONS] Stat Comment: Consulting Provider: Naveen Rodas Reason For Exam: Physician to Consult 07/08/20 22:41 Consult to Physician [CONS] Stat Comment: Consulting Provider: Shamar Pepe Reason For Exam: Physician to Consult Discharge Meds Discharge Medications Home Medications hydrochlorothiazide 12.5 mg tablet 12.5 mg PO QDAY 10/06/19 [History Confirmed 07/10/20 Last Taken Unknown] insulin lispro 100 unit/mL subcutaneous cartridge 1 sliding scale dose SUB-Q USEASDIRECTD 10/06/19 [History Confirmed 07/10/20 Last Taken Unknown] lisinopril 5 mg tablet 5 mg PO QDAY 10/06/19 [History Confirmed 07/10/20 Last Taken Unknown] sphzowwt-cxmcnbsg-dpihc acid 400 mcg-vit K 20 mcg-lycop 300 mcg tablet 1 tab PO DAILY 10/06/19 [History Confirmed 07/10/20 Last Taken Unknown] pravastatin 20 mg tablet 20 mg PO QDAY 10/06/19 [History Confirmed 07/10/20 Last Taken Unknown] pregabalin 75 mg capsule 150 mg PO BID cap 10/06/19 [History Confirmed 07/10/20 Last Taken Unknown] tamsulosin 0.4 mg capsule 0.4 mg PO QDAY 10/06/19 [History Confirmed 07/10/20 Last Taken Unknown] lorazepam 1 mg PO QDAY PRN 07/08/20 [History Confirmed 07/10/20 Last Taken Unknown] hydrocodone-acetaminophen 1 - 2 tab PO Q4HP PRN #50 tab 07/10/20 [Rx Last Taken Unknown] COURSE Hospital Course Hospital course: Mr. Reynolds is a 64 year old male with a history of diabetes mellitus type I complicated by peripheral neuropathy, hyperlipidemia, bradycardia, osteoporosis who fell in his shop and fractured his left hip. Workup in the ED included left hip xrays showing left proximal femoral fracture and CT of the hip showing a comminuted, minimally displaced, angulated subcapital fracture of the left hip. Hospital medicine was asked to admit the patient with orthopedic surgery consulting. The patient denies a history of myocardia infarction or stroke. He is normally fairly active but not athletic. He had a cardiac stress test recently that he says was interpreted as normal. He has had bradycardia for a long time and says he has seen cardiology for that. He manages his diabetes mellitus with an insulin pump and also has a connected sensor. He typically requires about 24 units of insulin per day and hemoglobin A1C have been well controlled since he started using the pump. Prior to that his glucose was difficult to control, at one point hemoglobin A1C was over 12. Other than the hip fracture he is also concerned about left knee pain and swelling. He otherwise has no complaints. 07/09-surgery went well, resuming insulin pump and starting diet, PT/OT, no fractures of left knee on xray, chondrocalcinosis of medial meniscus present, absent patella wtih mild edema in the patellar tendon 07/10-discharged to home, aspirin 81 mg BID for DVT prophylaxis per surgery re commendations. Head: Atraumatic, normal inspection. Eyes: normal appearance, no scleral icterus. Neck: full ROM Respiratory: no respiratory distress. Cardiovascular: regular bradycardia, S1, S2. GI/Abdominal: soft, nontender, no guarding. Extremities: left hip incision clearn, left knee swelling but no signs of external trauma Neurological: CN II-XII intact, intact motor, intact sensation. Psychiatric: normal mood. Skin: warm, normal color Discharge diagnosis: hip fracture Time Spent with Patient Time attestation: Total time spent providing and/or coordinating discharge services: EXAM Constitutional Vitals: Temp Pulse Resp BP Pulse Ox 98.9 F 96 H 16 101/52 95 07/10/20 07:43 07/10/20 07:43 07/10/20 07:43 07/10/20 07:43 07/10/20 07:43 Discharge Data Data Completed and Pending Labs on day of discharge: Labs from last 24 hours 07/10/20 07/10/20 07/10/20 08:06 05:10 05:10 Hgb 12.7 L Hct 37.4 L PT 14.9 H INR 1.1 Sodium 133 Potassium 3.9 Chloride 100 Carbon Dioxide 23 Anion Gap 10.0 BUN 16 Creatinine 0.9 GFR Calculation 90 Glucose 241 H Calcium 8.4 L Phosphorus 2.0 L Albumin 3.3 Discharge Plan Patient/Caregiver Discharge Instructions Activity: ambulate only with your walker Diet: Consistent Carbohydrate Instructions: Diabetes Mellitus Type 1 in Adults, Master Fire Control Technician (GEN) Prescriptions: New hydrocodone-acetaminophen 7.5-325 mg Tablet 1 - 2 tab PO Q4HP PRN (Reason: Per Pain Protocol) Qty: 50 RF: 0 No Action Humalog U-100 Insulin 100 unit/mL cartridge 1 sliding scale dose SUB-Q USEASDIRECTD RF: 0 lisinopril 5 mg tablet 5 mg PO QDAY RF: 0 pregabalin 75 mg capsule 150 mg PO BID RF: 0 tamsulosin 0.4 mg capsule 0.4 mg PO QDAY RF: 0 pravastatin 20 mg tablet 20 mg PO QDAY RF: 0 hydrochlorothiazide 12.5 mg tablet 12.5 mg PO QDAY RF: 0 One-A-Day Men's Multivitamin 400-20-300 mcg tablet 1 tab PO DAILY RF: 0 lorazepam 1 mg Tablet 1 mg PO QDAY PRN (Reason: Anxiety) RF: 0 Follow Up Plan Follow up with: Rozina Watson MD [Primary Care Provider] - Patient Disposition: Home, Self-Care Rehab Potential: Fair Discharge Orders: Discharge Order (Routine); Ordered 07/10/20 Ordered By: Shamar PIERCE VTE Deep Vein Thrombosis/Pulmonary Embolism Present on Admission: No
--- NOTE | 2020-07-11 10:50 | EKG ---
[facility] Test Date: 2020-07-08 Pat Name: Robert Reynolds Department: ED Room: Gender: Male Industrial Trainer: : 1955 Requested By: Alberto Vogt Order Number: [id number] Reading MD: Joao Snow M.D. Measurements Intervals [place] Rate: 50 P: 77 VA: 223 QRS: -71 QRSD: 99 T: 59 QT: 452 QTc: 413 Interpretive Statements Sinus arrhythmia Prolonged VA interval RSR' in V1 or V2, right VCD Inferior infarct, old Minimal ST elevation, anterior leads LEFT AXIS DEVIATION Electronically Signed On 07-10-2020 12:16:35 PDT by Joao Snow M.D. /[facility] [place]/[email or web address]/[id number]
== END 2020-07-10 15:55 | disposition home or self-care (01) | DRG 522 ==
LOC: ED 16:28 → MEDSUR 22:12
PROVIDERS: ADMIT Internal Medicine; ATTEND Internal Medicine